=== PATIENT | female | born 1940 | race Caucasian/White ===

== ENCOUNTER 2017-05-27 18:17 | Inpatient (IN) | payer OTHER ==
[~2017-05-27] VITALS: Ht 154.9 cm; Wt 77.1 kg
--- NOTE | ~2017-05-27 | HC ---
[facility] [place] [address] CONSULTATION Name: SAVANNA KIM Saud Room #: 444-P [facility] IN M.R.#: [id number] Admission: 05/27/17 Attend Phys: Daniel Alas DO Discharge: 05/29/17 Date of : 42 Report #: [id number] THIS REPORT FOR: //name// CC: Ramirez Abdullahi Alas DATE OF SERVICE: 05/28/2017 HISTORY OF PRESENT ILLNESS: This is a 77-year-old female patient who was evaluated by me to determine any neurological etiology for the patient's dizziness. She indicated that she woke up and was dizzy. She noticed her blood pressure was high, but reviewing the record, it looks like the blood pressure was high, but not very high, it was 157/108. She indicates that it does not go that high. The dizziness was severe and she usually does not have any dizziness. She was seen in the emergency room and at that time, it was noticed that she also has associated ambulation difficulty. The symptoms appear to have improved, but not resolved. REVIEW OF SYSTEMS: Indicate she indicated that usually her blood pressure is not as high as it was. She had some GI problems and had sinus problems in the past. She has a history of gastroesophageal reflux disease. She had hip replaced on the right side and one time she used to have some physical therapy done, but not now. I carried out 14-point review of system and this was her relevant 14-point review of system. PAST MEDICAL HISTORY: Negative for stroke or heart issues. FAMILY HISTORY: Negative for early age stroke. SOCIAL HISTORY: She does not smoke, but drinks one alcoholic drink every night. PHYSICAL EXAMINATION: The patient's examinations indicate she is alert, responsive, able to follow simple and complex command. Cranial nerve examination 2-12 is unremarkable. She believes her speech, concentration, fund of knowledge and memory is at her baseline. She does have some weakness in the right leg, but she indicates that is her baseline and is because of the hip surgery. Otherwise, her reflexes, tone and sensations are symmetrical. She has no cerebellar sign or papilledema. There is no carotid bruit or any thyroid mass. Pulses are palpable, but she has no edema, cyanosis or jaundice. Cardiac examinations indicate the exam was unremarkable. She has no atrial fibrillations or any loud murmur I can hear. There is no respiratory difficulty or rhonchi on either side. Her pulses are palpable and she has no edema, cyanosis, or jaundice. Her last blood pressure was 133/91, respiration was 18, pulse was 103, and temperature was 98.7. LABS: Indicate a normal white count. She did have a CT scan of the head done [address] [address] CONSULTATION Name: KIMSAVANNA Room #: 444-P DIS IN M.R.#: [id number] Admission: 05/27/17 Attend Phys: Daniel Alas DO Discharge: 05/29/17 Date of : 42 Report #: [id number] on admission and that was unremarkable and she is going for MRI. IMPRESSION: Clinically, it does not look like that this patient had any central nervous system etiology for the patient's dizziness. However, there is no obvious cause for it. The blood pressure was high, but not very high. Therefore, I think it is reasonable to proceed with the MRI and I will also order an MRA. If she is not able to complete the exam, then I will suggest doing a carotid Doppler. If that workup is unremarkable, then it will make it even less likely that the etiology is neurological. I discussed all of it with the patient and she wants to proceed with it. RECOMMENDATIONS: 1. MRI of the brain as scheduled. 2. I will add the MRA. 3. If that is normal, then it is unlikely that there is any neurological etiology for the patient's symptom and the workup should be directed towards looking at non-neurological etiology including ENT etiology for the patient's symptoms. Dr. Bailey will be covering this service from tomorrow and I will ask her to follow up this patient and look at these testing. Thank you very much for this referral. <ELECTRONICALLY SIGNED> By: Rashid Puckett MD 06/03/172008 0931 [id number] Rashid Puckett MD /nt
--- NOTE | ~2017-05-27 | EKG ---
[place] [address] [facility] [place] [address] ELECTROCARDIOGRAM REPORT Name: SAVANNA KIM Room #: 444-P ADM IN M.R.#: [id number] Admission: 05/27/17 Attend Phys: Daniel Alas DO Discharge: Date of : 42 Report #: [id number] THIS REPORT FOR: //name// [facility] ED Test Date: 2017-05-27 Test Time: 18:43:45 Pat Name: SAVANNA KIM Department: Room: 444 Gender: F Connection Worker: DANAE : 1940 Requested By: Neo Rhodes Order Number: [id number] MD: Brice Gates Measurements Intervals [place] Rate: 94 P: 19 NH: 201 QRS: 2 QRSD: 119 T: -16 QT: 368 QTc: 461 Interpretive Statements Sinus rhythm Nonspecific ST segment abnormality Compared to ECG 07/29/2013 13:36:[address] segment abnormality is now present Electronically Signed On 05-28-2017 8:56:14 CHEF MANAGER by Brice Gates [email or web address] <ELECTRONICALLY SIGNED> By: Brice Gates MD, [facility] 05/28/17 [id number] Brice Gates MD, [facility] /EPI
[2017-05-27 18:17] VITALS: BP 157/108
[~2017-05-27 18:17] MED LIST: ALLEGRA ALLERG180 MG PO; ALLEGRA180 MG PO; B COMPLEX-VITA1 EACH PO; B-COMPLEX-VITA1 EACH PO; CALCIUM 500+D1 EAC2 PO; CAPSULE #0001 EACH PO; CIPRO250 M1; ECONAZOLE NITRA85 GM TOP; ETODOLAC500 MG PO; FISH OIL + VIT1 EACH PO; FISH OIL 1,0001 EAC5 PO; FISH OIL 1,0001 EAC7 PO; FLONASE 0.05%50 MCG NASAL; FLOVENT HFA10.6 GM SPRAY; GARLIC OIL1 EACH PO; MAGNESIUM250 M1 PO; METAMUCIL0.52 GM PO; MULTI VITAMIN1 EACH PO; NIACIN 100MG T100 M1 PO; PATADAY2.5 ML OPHTHALMIC; PROTONIX40 M2 PO; RECLAST 55 MG/100 M IV; REGLAN 5 MG TAB5 M1; ROBAXIN 750 MG750 M1 PO; THERA-M CAPLET1 EACH PO; TRAMADOL 50 MG50 MG PO; ULTRAM 50MG TAB50 MG; VITAMIN D2000 UNIT PO; XARELTO10 M1; ZOCOR40 MG PO; [UNRECOGNIZED DRUG - OTHER] PO; [UNRECOGNIZED DRUG - OTHER] PO
[2017-05-27 18:38] LABS: ABSOLUTE NEUTROPHILS 3.9 thou/uL (1.4-8.2); BASOPHILS 0.9 % (0.0-2.0); EOSINOPHILS 0.4 % (0.0-3.0); HEMATOCRIT 44.4 % (37.0-47.0); HEMOGLOBIN 15.2 gm/dL (12.0-15.0); LYMPHOCYTES 33.9 % (24.0-44.0); MCH 31.8 pg (26.0-34.0); MCHC 34.2 g/dL (28.0-37.0); MCV 93.2 fL (80.0-100.0); PLATELET COUNT 191 thou/uL (150-400); POLYS 58.8 % (36.0-66.0); RBC 4.76 mil/uL (4.20-5.00); RDW 12.9 % (10.5-14.5); WBC 6.6 thou/uL (4.0-11.0)
[2017-05-27 18:46] LABS: ANION GAP 11 mmol/L (7-16); BUN 17 mg/dL (7-18); CALCIUM 10.2 mg/dL (8.5-10.1); CHLORIDE 103 mmol/L (98-107); CO2 26 mmol/L (21-32); CREATININE 0.7 mg/dL (0.6-1.0); GLUCOSE 127 mg/dL (74-106); SODIUM 140 mmol/L (136-145)
[2017-05-27 18:54] LABS: TROPONIN-I < 0.04 ng/mL (<0.06)
[2017-05-27 20:42] LABS: URINE BILIRUBIN NEGATIVE (Negative); URINE BLOOD NEGATIVE (Negative); URINE CLARITY CLEAR; URINE COLOR YELLOW; URINE GLUCOSE-RANDOM* NEGATIVE (Negative); URINE KETONES NEGATIVE (Negative); URINE LEUKOCYTES-REFLEX NEGATIVE (Negative); URINE NITRITE-REFLEX NEGATIVE (Negative); URINE PROTEIN (DIPSTICK) NEGATIVE (Negative); URINE UROBILINOGEN 0.2 E.U./dl (0.2-1.0)
[2017-05-27] MEDS ORDERED: CALCIUM CITRAT480 GM PO (21:26)
[2017-05-27] MEDS ORDERED: CELEBREX 200 M200 M1 PO (21:29)
[2017-05-27] MEDS ORDERED: LIPITOR 20 MG T20 M1 PO (21:29)
[2017-05-27] MEDS ORDERED: RECLAST 55 MG/1002 IV (21:30)
[2017-05-27] MEDS ORDERED: AZELASTINE137 MCG/0. NASAL (21:30)
[2017-05-27] MEDS ORDERED: VITAMIN B COMP1 EACH PO (21:31)
[2017-05-27] MEDS ORDERED: AMLODIPINE BESYL5 M1 PO (21:31)
[2017-05-27 21:44] VITALS: BP 130/94
[2017-05-28 04:00] VITALS: BP 149/86
[2017-05-28 04:29] LABS: CALCIUM 9.1 mg/dL (8.5-10.1); CREATININE 0.7 mg/dL (0.6-1.0); POTASSIUM 3.6 mmol/L (3.5-5.1)
[2017-05-28 08:45] VITALS: BP 133/91
[2017-05-28 10:09] LABS: TSH 1.099 uIU/mL (0.358-3.740)
[2017-05-28 16:54] VITALS: BP 132/81
[2017-05-28 19:40] VITALS: BP 136/78
[2017-05-29 03:14] VITALS: BP 144/89
[2017-05-29] MEDS ORDERED: AMLODIPINE BESY10 MG PO (08:04)
[2017-05-29 08:15] VITALS: BP 151/87
[2017-05-29 10:32] VITALS: BP 151/87
== END 2017-05-29 12:30 | disposition home or self-care (01) | DRG 149 ==
LOC: ER 18:17 → EROBS 21:07 → 4S 21:07 → ENTRNSPT 05-29 12:22 → EDTRNSPTSTS 05-29 12:25 → 4S 05-29 12:30
PROVIDERS: Nurse Practitioner Family; Physician Assistant; Psychiatry & Neurology Neuromuscular Medicine
DX: H81.10 Benign paroxysmal vertigo, unspecified ear (principal); I10 Essential (primary) hypertension; E78.5 Hyperlipidemia, unspecified; M19.90 Unspecified osteoarthritis, unspecified site; K21.9 Gastro-esophageal reflux disease without esophagitis; Z96.641 Presence of right artificial hip joint; K22.70 Barrett's esophagus without dysplasia; E78.00 Pure hypercholesterolemia, unspecified; R55 Syncope and collapse; Z88.0 Allergy status to penicillin; Z88.8 Allergy status to other drugs, medicaments and biological substances; Z91.040 Latex allergy status; Z79.899 Other long term (current) drug therapy; Z85.828 Personal history of other malignant neoplasm of skin
CPT/HCPCS: 10195